=== PATIENT | female | born 1960 | race Caucasian/White ===

== ENCOUNTER 2017-05-24 19:45 | Emergency (ER) | payer MEDICAID ==
[2017-05-24 20:11] LABS: BASOPHILS 0.2 % (0-2); EOSINOPHILS 1.9 % (0-7); HEMATOCRIT 38.4 % (36.0-48.0); HEMOGLOBIN 13.2 g/dL (12-16); IMMATURE GRANULOCYTES 0.2 % (0-5); LYMPHOCYTES 31.7 % (15-50); MCH 29.6 pg (26.0-34.0); MCHC 34.4 g/dL (31.0-37.0); MCV 86.1 fL (80.0-100.0); MEAN PLATELET VOLUME 8.9 fL (7.4-10.4); MONOCYTES 8.3 % (2-11); NEUTROPHILS 57.7 % (40-80); PLATELET COUNT 267 10x3/uL (130-400); RBC 4.46 10x6/uL (4.00-5.40); RDW 12.5 % (11.5-14.5); WBC 8.2 10x3/uL (4.8-10.8)
[2017-05-24 20:23] LABS: INR 0.92 (0.85-1.17)
[2017-05-24 20:35] LABS: ALBUMIN 3.7 g/dL (3.4-5.0); ANION GAP 14.3 mmol/L (8-16); BILIRUBIN - TOTAL 0.23 mg/dL (0.2-1.3); CALCIUM 9.3 mg/dL (8.5-10.1); CARBON DIOXIDE 25.5 mmol/L (21.0-32.0); POTASSIUM - SERUM 3.8 mmol/L (3.5-5.1); PROTEIN - SERUM 7.8 g/dL (6.4-8.2)
[2017-05-24 20:39] LABS: APPEARANCE CLEAR (CLEAR); BILIRUBIN NEGATIVE (NEGATIVE); COLOR YELLOW (YELLOW); GLUCOSE NEGATIVE (NEGATIVE); KETONE NEGATIVE (NEGATIVE); NITRITE NEGATIVE (NEGATIVE); PROTEIN NEGATIVE (NEGATIVE); UROBILINOGEN NORMAL (NORMAL)
[2017-05-24 20:41] LABS: BACTERIA FEW /hpf (NONE SEEN); EPITHELIAL CELLS 0-5 /hpf (0-5); RED CELLS - URINE 0-5 /hpf (0-5); WHITE CELLS - URINE OCC /hpf (0-5)
== END 2017-05-24 21:30 | disposition home or self-care (01) ==
LOC: D.ER 19:45
PROVIDERS: Family Medicine; Nurse Practitioner Family
DX: S86.911A Strain of unspecified muscle(s) and tendon(s) at lower leg level, right leg, initial encounter (principal); W19.XXXA Unspecified fall, initial encounter; Y93.89 Activity, other specified; Y92.019 Unspecified place in single-family (private) house as the place of occurrence of the external cause; N39.0 Urinary tract infection, site not specified